=== PATIENT | male | born 1955 | race Caucasian/White ===

== ENCOUNTER 2021-02-22 14:30 | Emergency (ER) | payer OTHER ==
[~2021-02-22] VITALS: Ht 180.3 cm; Wt 73.9 kg
[2021-02-22 18:08] LABS: HEMOGLOBIN 9.6 gm/dl (14.0-17.5); RED BLOOD COUNT 4.83 M/UL (4.20-5.50); WHITE BLOOD COUNT 4.2 K/UL (4.5-11.0)
[2021-02-22 20:05] LABS: BUN/CREATININE RATIO 29 (0-10)
[2021-02-23 04:58] LABS: BUN/CREATININE RATIO 36 (0-10)
[2021-02-23] MEDS ORDERED: KENALOG CREAM 080 GM TOP (11:28)
[2021-02-23] MEDS ORDERED: PROAIR HFA8.5 GM INH (11:28)
[2021-02-23] MEDS ORDERED: K-TAB ER10 MEQ PO (16:26)
[2021-02-23] MEDS ORDERED: LASIX20 MG PO (16:26)
== END 2021-02-23 19:35 | disposition home or self-care (01) ==
LOC: ER1 14:30 → CDU 21:26 → ER1 21:26
PROVIDERS: Internal Medicine; Physician Assistant
DX: N50.89 Other specified disorders of the male genital organs (principal); I50.9 Heart failure, unspecified; R09.02 Hypoxemia; J44.9 Chronic obstructive pulmonary disease, unspecified; Z20.822 Contact with and (suspected) exposure to COVID-19; F17.200 Nicotine dependence, unspecified, uncomplicated; Z88.8 Allergy status to other drugs, medicaments and biological substances; Z88.6 Allergy status to analgesic agent
CPT/HCPCS: ECHO; 71045; 71250; 76870; 80048; 81001; 83880; 85025; 93005; 93306; 94640; 94664; 94760; 99285; G0378; J1940; J2930; U0002